=== PATIENT | female | born 1990 | race Caucasian/White ===

== ENCOUNTER 2019-10-07 22:56 | Emergency (ER) | payer BC, OTHER ==
[2019-10-07] MEDS ORDERED: ONDANSETRON 4 MG/2 ML VIAL IVP STA (23:29)
[2019-10-07] MEDS ORDERED: HYDROmorphone 1 MG/ML 1 ML SYRINGE IVP STA (23:29)
[2019-10-07] MEDS ORDERED: SODIUM CHLORIDE 0.9% 1,000 ML IV STA (23:29)
[2019-10-08 00:14] LABS: Basophils % (A) 0 %; Eosinophils # (A) 0.2 k/uL (0-0.7); Eosinophils % (A) 2 %; HCT 38.5 % (34.0-46.0); HGB 13.3 gm/dL (11.4-16.0); Lymphocytes # (A) 3.1 k/uL (1.0-4.8); Lymphocytes % (A) 30 %; MCH 32.6 pg (25.0-35.0); MCHC 34.6 g/dL (31.0-37.0); MCV 94.2 fL (80.0-100.0); Mean Platelet Volume 5.9; Monocytes # (A) 0.6 k/uL (0-1.0); Monocytes % (A) 6 %; Neutrophils # (A) 6.3 k/uL (1.3-7.7); Neutrophils % (A) 60 %; Platelet Count 228 k/uL (150-450); RBC 4.09 m/uL (3.80-5.40); RDW 11.8 % (11.5-15.5); WBC 10.5 k/uL (3.8-10.6)
[2019-10-08 00:18] LABS: Appearance,Urine Clear (Clear); Bacteria,Urine Rare /hpf; Bilirubin,Urine Negative (Negative); Blood,Urine Negative (Negative); Color,Urine Yellow; Glucose,Urine (UA) Negative (Negative); Ketones,Urine Trace (Negative); Leukocyte Esterase,Urine Trace (Negative); Mucus,Urine Rare /hpf; Nitrite,Urine Negative (Negative); Protein,Urine Negative (Negative); RBC,Urine 3 /hpf (0-5); Squamous Epithelial Cell,Urine 4 /hpf (0-4); Urobilinogen,Urine <2.0 mg/dL (<2.0)
[2019-10-08 00:36] LABS: ALT 20 U/L (9-52); AST 25 U/L (14-36); African American GFR (CKD) >90 (>60 ml/min/1.73 sqM); Albumin 4.3 g/dL (3.5-5.0); Alkaline Phosphatase 47 U/L (38-126); Anion Gap 14 mmol/L; Blood Urea Nitrogen 14 mg/dL (7-17); Calcium 9.3 mg/dL (8.4-10.2); Carbon Dioxide 21 mmol/L (22-30); Chloride 102 mmol/L (98-107); Glucose 131 mg/dL (74-99); Potassium 3.4 mmol/L (3.5-5.1); Sodium 137 mmol/L (137-145); Total Bilirubin 1.1 mg/dL (0.2-1.3)
--- NOTE | 2019-10-08 00:42 | US ---
EXAMINATION TYPE: US transvaginal DATE OF EXAM: 10/08/2019 COMPARISON: NONE CLINICAL HISTORY: r/o torsion. Left-sided pelvic pain x 4 hours. G0 TECHNIQUE: Transvaginal (TV). Date of LMP: 09/30/2019 EXAM MEASUREMENTS: Uterus: 8.2 x 4.5 x 3.3 cm Endometrial Stripe: 0.77 cm Right Ovary: 2.6 x 2.0 x 1.6 cm Left Ovary: 2.9 x 1.7 x 1.5 cm 1. Uterus: Anteverted appears to be wnl 2. Endometrium: Hyperechoic area seen HOLA measurin.4 x 0.4 x 0.3 cm. 3. Right Ovary: Anechoic areas seen, largest measures: 0.7 x 0.8 x 0.7 cm. Arterial and venous wavef orms area seen. 4. Left Ovary: Anechoic areas seen. Largest area is septated and measures: 0.9 x 1.2 x 0.8 cm. Arter ial waveform is seen. Limited venous waveform. Cannot definitely show venous waveform. 5. Bilateral Adnexa: appear wnl 6. Posterior cul-de-sac: appears wnl IMPRESSION: There is a small cervical cysts. There are small bilateral ovarian cysts. No solid adnexa l mass. No evidence of ovarian torsion. Normal uterus.
[2019-10-08] MEDS ORDERED: HYDROmorphone 0.5 MG/0.5 ML SYRINGE IVP STA (00:54)
[2019-10-08] MEDS ORDERED: diphenhydrAMINE 50 MG/ML 1 ML VIAL IVP STA (02:13)
[2019-10-08] MEDS ORDERED: METOCLOPRAMIDE 5 MG/ML 2 ML VIAL IVP STA (02:13)
--- NOTE | 2019-10-08 03:10 | ED ---
General Adult HPI - General Source: patient, RN notes reviewed, old records reviewed Mode of arrival: wheelchair Limitations: no limitations <Srikanth Angel - Last Filed: 10/08/19 03:23> <Windy Knowles - Last Filed: 10/08/19 22:54> - General Chief complaint: Abdominal Pain Stated complaint: Lower abd pain Time Seen by Provider: 10/07/19 23:23 - History of Present Illness Initial comments: 29-year-old female patient with no pertinent past medical history presents to the chief complaint of left lower quadrant, left adnexal abdominal pain. Patient worse this began approximately 2 hours prior to presentation. Describes it as a sharp stabbing pain. Reports nausea and vomiting. Denies any other complaints at this time. Denies a chance of being . Systemic: Pt denies fatigue, fever/chills, rash. Pt denies weakness, night sweats, weight loss. Neuro: Pt denies headache, visual disturbances, syncope or pre-syncope. HEENT: Pt denies ocular discharge or irritation, otalgia, rhinorrhea, pharyng itis or notable lymphadenopathy. Cardiopulmonary: Pt denies chest pain, SOB, heart palpitations, dyspnea on exertion. Abdominal/GI: Pt denies n/v/d. : Pt denies dysuria, burning w/ urination, frequency/urgency. Denies new onset urinary or bowel incontinence. MSK: Pt denies myalgia, loss of strength or function in extremities. Neuro: Pt denies new onset weakness, paresthesias. (Srikanth Angel) - Related Data Allergies Allergy/AdvReac Type Severity Reaction Status Date / Time No Known Allergies Allergy Verified 10/07/19 23:13 Review of Systems ROS Other: All systems not noted in ROS Statement are negative. <Srikanth Angel - Last Filed: 10/08/19 03:23> ROS Other: All systems not noted in ROS Statement are negative. <Windy Knowles - Last Filed: 10/08/19 22:54> ROS Statement: Those systems with pertinent positive or pertinent negative responses have been documented in the HPI. Past Medical History Past Medical History: No Reported History History of Any Multi-Drug Resistant Organisms: None Reported Past Surgical History: No Surgical Hx Reported Past Psychological History: No Psychological Hx Reported Smoking Status: Never smoker Past Alcohol Use History: Occasional Past Drug Use History: None Reported <Srikanth Angel - Last Filed: 10/08/19 03:23> General Exam Limitations: no limitations <Srikanth Angel - Last Filed: 10/08/19 03:23> - General Exam Comments Initial Comments: Constitutional: NAD, AOX3, Pt has pleasant affect. HEENT: NC/AT, trachea midline, neck supple, no lymphadenopathy. Posterior pharynx non erythematous, without exudates. External ears appear normal, without discharge. Mucous membranes moist. Eyes PERRLA, EOM intact. There is no scleral icterus. No pallor noted. Cardiopulmonary: RRR, no murmurs, rubs or gallops, no JVD noted. Lungs CTAB in anterior and posterior david. No peripheral edema. Abdominal exam: Abdomen soft and non-distended. Abdomen non-tender to palpation in all 4 quadrants. Bowel sounds active in LLQ. No hepatosplenomegaly. No ecchymosis left adnexal region mildly tender to palpation. Neuro: CN II-XII grossly intact. No nuchal rigidity. No raccon eyes, no lobato sign, no hemotympanum. No cervical spinal tenderness. MSK: No posterior calf tenderness bilaterally, homans sign negative bilaterally. Posterior tibialis and radial pulse +2 bilaterally. Sensation intact in upper and lower extremities. Full active ROM in upper and lower extremities, 5/5 stregnth. (Sriaknth Angel) Course Vital Signs 10/07/19 10/08/19 10/08/19 23:10 00:49 03:38 Temperature 97.9 F 98.2 F 97.9 F Pulse Rate 92 56 L 82 Respiratory 24 18 17 Rate Blood Pressure 108/73 116/66 119/81 O2 Sat by Pulse 100 97 96 Oximetry Medical Decision Making - Lab Data Result diagrams: 10/07/19 23:53 10/07/19 23:53 <Srikanth Angel - Last Filed: 10/08/19 03:23> - Lab Data Result diagrams: 10/07/19 23:53 10/07/19 23:53 <Windy Knowles - Last Filed: 10/08/19 22:54> - Medical Decision Making 29-year-old male patient presents to the chief complaint left adnexal pain. Patient will signs stable, afebrile. Physical exam displayed left adnexal tenderness to palpation. Laboratory investigations are non-impressive. 1.8, hCG negative. Transvaginal shot displayed small cervical cysts, small bilateral ovarian cysts, no solid adnexal mass. No sign of torsion. Normal Uterus. Patient feeling much improved. Pt will be discharged with close siebel administrator follow- up and return precautions. Case discussed and pelvic exam performed by Dr. Knowles. (Srikanth Angel) I personally saw and evaluated the patient, patient with persistent nausea and vomiting after pain medication. She was treated with reglan and benadryl prior to pelvic exam. Upon re-evaluation, patient was sleeping comfortably. I woke the patient, pelvic exam was completed. Patient was noted to have some physiologic discharge, no purulent discharge, no cervical discharge, no CMT or adnexal tenderness on exam. Patient much more comfortable at this time. US results were discussed. Patient and comfortable with plan for discharge home and out patient follow up with Gyne (Windy Knowles) - Lab Data Lab Results 10/07/19 10/07/19 10/07/19 Range/Units 23:53 23:53 23:53 WBC 10.5 (3.8-10.6) k/uL RBC 4.09 (3.80-5.40) m/uL Hgb 13.3 (11.4-16.0) gm/dL Hct 38.5 (34.0-46.0) % MCV 94.2 (80.0-100.0) fL MCH 32.6 (25.0-35.0) pg MCHC 34.6 (31.0-37.0) g/dL RDW 11.8 (11.5-15.5) % Plt Count 228 (150-450) k/uL Neutrophils % 60 % Lymphocytes % 30 % Monocytes % 6 % Eosinophils % 2 % Basophils % 0 % Neutrophils # 6.3 (1.3-7.7) k/uL Lymphocytes # 3.1 (1.0-4.8) k/uL Monocytes # 0.6 (0-1.0) k/uL Eosinophils # 0.2 (0-0.7) k/uL Basophils # 0.0 (0-0.2) k/uL Sodium 137 (137-145) mmol/L Potassium 3.4 L (3.5-5.1) mmol/L Chloride 102 (98-107) mmol/L Carbon Dioxide 21 L (22-30) mmol/L Anion Gap 14 mmol/L BUN 14 (7-17) mg/dL Creatinine 0.79 (0.52-1.04) mg/dL Est GFR (CKD-EPI)AfAm >90 (>60 ml/min/1.73 sqM) Est GFR (CKD-EPI)NonAf >90 (>60 ml/min/1.73 sqM) Glucose 131 H (74-99) mg/dL Plasma Lactic Acid Roger (0.7-2.0) mmol/L Calcium 9.3 (8.4-10.2) mg/dL Total Bilirubin 1.1 (0.2-1.3) mg/dL AST 25 (14-36) U/L ALT 20 (9-52) U/L Alkaline Phosphatase 47 (38-126) U/L Total Protein 7.0 (6.3-8.2) g/dL Albumin 4.3 (3.5-5.0) g/dL Lipase 92 (23-300) U/L Urine Color Urine Appearance (Clear) Urine pH (5.0-8.0) Ur Specific [place] (1.001-1.035) Urine Protein (Negative) Urine Glucose (UA) (Negative) Urine Ketones (Negative) Urine Blood (Negative) Urine Nitrite (Negative) Urine Bilirubin (Negative) Urine Urobilinogen (<2.0) mg/dL Ur Leukocyte Esterase (Negative) Urine RBC (0-5) /hpf Urine WBC (0-5) /hpf Ur Squamous Epith Cells (0-4) /hpf Urine Bacteria (None) /hpf Urine Mucus (None) /hpf Urine HCG, Qual Not Detected (Not Detectd) 10/07/19 10/08/19 Range/Units 23:53 00:36 WBC (3.8-10.6) k/uL RBC (3.80-5.40) m/uL Hgb (11.4-16.0) gm/dL Hct (34.0-46.0) % MCV (80.0-100.0) fL MCH (25.0-35.0) pg MCHC (31.0-37.0) g/dL RDW (11.5-15.5) % Plt Count (150-450) k/uL Neutrophils % % Lymphocytes % % Monocytes % % Eosinophils % % Basophils % % Neutrophils # (1.3-7.7) k/uL Lymphocytes # (1.0-4.8) k/uL Monocytes # (0-1.0) k/uL Eosinophils # (0-0.7) k/uL Basophils # (0-0.2) k/uL Sodium (137-145) mmol/L Potassium (3.5-5.1) mmol/L Chloride (98-107) mmol/L Carbon Dioxide (22-30) mmol/L Anion Gap mmol/L BUN (7-17) mg/dL Creatinine (0.52-1.04) mg/dL Est GFR (CKD-EPI)AfAm (>60 ml/min/1.73 sqM) Est GFR (CKD-EPI)NonAf (>60 ml/min/1.73 sqM) Glucose (74-99) mg/dL Plasma Lactic Acid Roger 1.8 (0.7-2.0) mmol/L Calcium (8.4-10.2) mg/dL Total Bilirubin (0.2-1.3) mg/dL AST (14-36) U/L ALT (9-52) U/L Alkaline Phosphatase (38-126) U/L Total Protein (6.3-8.2) g/dL Albumin (3.5-5.0) g/dL Lipase (23-300) U/L Urine Color Yellow Urine Appearance Clear (Clear) Urine pH 6.0 (5.0-8.0) Ur Specific [place] 1.020 (1.001-1.035) Urine Protein Negative (Negative) Urine Glucose (UA) Negative (Negative) Urine Ketones Trace H (Negative) Urine Blood Negative (Negative) Urine Nitrite Negative (Negative) Urine Bilirubin Negative (Negative) Urine Urobilinogen <2.0 (<2.0) mg/dL Ur Leukocyte Esterase Trace H (Negative) Urine RBC 3 (0-5) /hpf Urine WBC 2 (0-5) /hpf Ur Squamous Epith Cells 4 (0-4) /hpf Urine Bacteria Rare H (None) /hpf Urine Mucus Rare H (None) /hpf Urine HCG, Qual (Not Detectd) Disposition Is patient prescribed a controlled substance at d/c from ED?: No <Srikanth Angel - Last Filed: 10/08/19 03:23> <Windy Knowles - Last Filed: 10/08/19 22:54> Clinical Impression: Pelvic pain Disposition: HOME SELF-CARE Condition: Stable Instructions (If sedation given, give patient instructions): Pelvic Pain in Women (ED) Additional Instructions: Follow up with your previously established data warehouse consultant tomorrow. Also follow up with primary care provider tomorrow. Return to ER if condition worsens in any way. Referrals: None,Stated [Primary Care Provider] - 1-2 days
[2019-10-08] MEDS ORDERED: ACET/COD 300 MG/30 MG STARTER PACK 6 TAB BTL PO STA (03:23)
[2019-10-08 03:39] VITALS: BP 119/81; PULSE 82; RESP 17; TEMP 97.9
[2019-10-09 14:00] LABS: N. gonorrhoeae,PCR Negative (Neg,Equiv); Neisseria Source Vagina
[2019-10-09 14:03] LABS: C. trachomatis,PCR Negative (Neg,Equiv); Chlamydia trachomatis Source Vagina
== END 2019-10-08 03:39 | disposition home or self-care (01) ==
LOC: EC 22:56
DX: N83.202 Unspecified ovarian cyst, left side (principal); N83.201 Unspecified ovarian cyst, right side; N88.8 Other specified noninflammatory disorders of cervix uteri
CPT/HCPCS: 36415 ×2; 80053; 83605; 83690; 85025; 81001; 81025; 87491; 87591; 87070; 93975; 76830; 99285; 96374; 96375 ×3; 96376; 96361; J1200; J2765; J2405; J1170 ×2

== ENCOUNTER 2019-10-11 18:22 | Emergency (ER) | payer BC, OTHER ==
[2019-10-11 18:27] VITALS: RESP 16
[2019-10-11] MEDS ORDERED: SODIUM CHLORIDE 0.9% 1,000 ML IV STA (18:42)
[2019-10-11] MEDS ORDERED: KETOROLAC 30 MG/ML 1 ML VIAL IVP STA (18:42)
--- NOTE | 2019-10-11 18:44 | ED ---
General Adult HPI - General Chief complaint: Abdominal Pain Stated complaint: recheck-low back pain Time Seen by Provider: 10/11/19 18:28 Source: patient, RN notes reviewed Mode of arrival: ambulatory Limitations: no limitations - History of Present Illness Initial comments: 29-year-old female without any significant past medical history presents to the emergency department for left flank pain. Patient states that 5 days ago she was diagnosed with an ovarian cyst. States that she saw PAPER WINDER in the thigh may have ruptured. However today patient has migrated to the back. Patient states that she is not sure what is going on and is not convinced it is a cyst. Patient states she does have urinary urgency but denies dysuria. Denies nausea vomiting diarrhea today. She did have nausea vomiting earlier in the week with this pain.Patient has no other complaints at this time including shortness of breath, chest pain, abdominal pain, nausea or vomiting, headache, or visual changes. - Related Data Previous Rx's Medication Instructions Recorded Ibuprofen [Motrin] 600 mg PO Q6HR PRN #20 tab 10/11/19 Ondansetron [Zofran ODT] 4 mg PO Q8HR PRN #15 tab 10/11/19 Tamsulosin [Flomax] 0.4 mg PO DAILY #14 cap 10/11/19 Allergies Allergy/AdvReac Type Severity Reaction Status Date / Time No Known Allergies Allergy Verified 10/11/19 18:27 Review of Systems ROS Statement: Those systems with pertinent positive or pertinent negative responses have been documented in the HPI. ROS Other: All systems not noted in ROS Statement are negative. Past Medical History Past Medical History: No Reported History History of Any Multi-Drug Resistant Organisms: None Reported Past Surgical History: No Surgical Hx Reported Past Psychological History: No Psychological Hx Reported Smoking Status: Never smoker Past Alcohol Use History: Occasional Past Drug Use History: None Reported General Exam Limitations: no limitations General appearance: alert, in no apparent distress Head exam: Present: atraumatic, normocephalic, normal inspection Eye exam: Present: normal appearance, PERRL, EOMI. Absent: scleral icterus, conjunctival injection, periorbital swelling ENT exam: Present: normal exam, mucous membranes moist Neck exam: Present: normal inspection, full ROM. Absent: tenderness, meningismus, lymphadenopathy Respiratory exam: Present: normal lung sounds bilaterally. Absent: respiratory distress, wheezes, rales, rhonchi, stridor Cardiovascular Exam: Present: regular rate, normal rhythm, normal heart sounds. Absent: systolic murmur, diastolic murmur, rubs, gallop, clicks GI/Abdominal exam: Present: soft, normal bowel sounds. Absent: distended, tenderness, guarding, rebound, rigid Back exam: Present: CVA tenderness (L). Absent: CVA tenderness (R) Course Vital Signs 10/11/19 18:25 Temperature 97.4 F L Pulse Rate 78 Respiratory 16 Rate Blood Pressure 130/70 O2 Sat by Pulse 100 Oximetry Medical Decision Making - Medical Decision Making CBC unremarkable. CMP does show a creatinine of 1.07, patient was given fluids. Urine will be cultured. CT abdomen and pelvis shows a small Kocsis at the left UVJ with minimal left-sided hydronephrosis. This is likely cause of patient's pain. X-ray KUB ordered for urology. Patient was reevaluated, pain is controlled at this time. Patient will be discharged home with medications. She will follow up with urology in 1-2 days. She will return here if she has any worsening symptoms. - Lab Data Result diagrams: 10/11/19 18:55 10/11/19 18:55 Lab Results 10/11/19 10/11/19 10/11/19 Range/Units 18:55 18:55 18:55 WBC 10.0 (3.8-10.6) k/uL RBC 4.55 (3.80-5.40) m/uL Hgb 14.6 (11.4-16.0) gm/dL Hct 42.2 (34.0-46.0) % MCV 92.7 (80.0-100.0) fL MCH 32.0 (25.0-35.0) pg MCHC 34.5 (31.0-37.0) g/dL RDW 11.5 (11.5-15.5) % Plt Count 245 (150-450) k/uL Neutrophils % 73 % Lymphocytes % 18 % Monocytes % 4 % Eosinophils % 1 % Basophils % 1 % Neutrophils # 7.3 (1.3-7.7) k/uL Lymphocytes # 1.8 (1.0-4.8) k/uL Monocytes # 0.4 (0-1.0) k/uL Eosinophils # 0.1 (0-0.7) k/uL Basophils # 0.1 (0-0.2) k/uL Sodium 138 (137-145) mmol/L Potassium 3.8 (3.5-5.1) mmol/L Chloride 102 (98-107) mmol/L Carbon Dioxide 26 (22-30) mmol/L Anion Gap 10 mmol/L BUN 12 (7-17) mg/dL Creatinine 1.07 H (0.52-1.04) mg/dL Est GFR (CKD-EPI)AfAm 82 (>60 ml/min/1.73 sqM) Est GFR (CKD-EPI)NonAf 71 (>60 ml/min/1.73 sqM) Glucose 105 H (74-99) mg/dL Calcium 9.4 (8.4-10.2) mg/dL Total Bilirubin 1.6 H (0.2-1.3) mg/dL AST 19 (14-36) U/L ALT 14 (9-52) U/L Alkaline Phosphatase 56 (38-126) U/L Total Protein 7.3 (6.3-8.2) g/dL Albumin 4.3 (3.5-5.0) g/dL Amylase 36 (30-110) U/L Lipase 38 (23-300) U/L Urine Color Urine Appearance (Clear) Urine pH (5.0-8.0) Ur Specific [place] (1.001-1.035) Urine Protein (Negative) Urine Glucose (UA) (Negative) Urine Ketones (Negative) Urine Blood (Negative) Urine Nitrite (Negative) Urine Bilirubin (Negative) Urine Urobilinogen (<2.0) mg/dL Ur Leukocyte Esterase (Negative) Urine RBC (0-5) /hpf Urine WBC (0-5) /hpf Ur Squamous Epith Cells (0-4) /hpf Urine Bacteria (None) /hpf Urine Mucus (None) /hpf Urine HCG, Qual Not Detected (Not Detectd) 10/11/19 Range/Units 18:55 WBC (3.8-10.6) k/uL RBC (3.80-5.40) m/uL Hgb (11.4-16.0) gm/dL Hct (34.0-46.0) % MCV (80.0-100.0) fL MCH (25.0-35.0) pg MCHC (31.0-37.0) g/dL RDW (11.5-15.5) % Plt Count (150-450) k/uL Neutrophils % % Lymphocytes % % Monocytes % % Eosinophils % % Basophils % % Neutrophils # (1.3-7.7) k/uL Lymphocytes # (1.0-4.8) k/uL Monocytes # (0-1.0) k/uL Eosinophils # (0-0.7) k/uL Basophils # (0-0.2) k/uL Sodium (137-145) mmol/L Potassium (3.5-5.1) mmol/L Chloride (98-107) mmol/L Carbon Dioxide (22-30) mmol/L Anion Gap mmol/L BUN (7-17) mg/dL Creatinine (0.52-1.04) mg/dL Est GFR (CKD-EPI)AfAm (>60 ml/min/1.73 sqM) Est GFR (CKD-EPI)NonAf (>60 ml/min/1.73 sqM) Glucose (74-99) mg/dL Calcium (8.4-10.2) mg/dL Total Bilirubin (0.2-1.3) mg/dL AST (14-36) U/L ALT (9-52) U/L Alkaline Phosphatase (38-126) U/L Total Protein (6.3-8.2) g/dL Albumin (3.5-5.0) g/dL Amylase (30-110) U/L Lipase (23-300) U/L Urine Color Light Yellow Urine Appearance Clear (Clear) Urine pH 5.5 (5.0-8.0) Ur Specific [place] 1.008 (1.001-1.035) Urine Protein Negative (Negative) Urine Glucose (UA) Negative (Negative) Urine Ketones 1+ H (Negative) Urine Blood Negative (Negative) Urine Nitrite Negative (Negative) Urine Bilirubin Negative (Negative) Urine Urobilinogen <2.0 (<2.0) mg/dL Ur Leukocyte Esterase Small H (Negative) Urine RBC 1 (0-5) /hpf Urine WBC 4 (0-5) /hpf Ur Squamous Epith Cells 2 (0-4) /hpf Urine Bacteria Occasional H (None) /hpf Urine Mucus Rare H (None) /hpf Urine HCG, Qual (Not Detectd) Disposition Clinical Impression: Ureterolithiasis Disposition: HOME SELF-CARE Condition: Good Instructions (If sedation given, give patient instructions): Kidney Stones (ED) Additional Instructions: Please take Motrin for pain. If pain is severe take Tylenol 3. Do not drive or operate machinery while taking this. Take Zofran for nausea. Take Flomax daily as directed. Call urology tomorrow and schedule an appointment depending on their availability. If you're having worsening symptoms return to the emerg ency department. Prescriptions: Tamsulosin [Flomax] 0.4 mg PO DAILY #14 cap Ibuprofen [Motrin] 600 mg PO Q6HR PRN #20 tab PRN Reason: Pain Ondansetron [Zofran ODT] 4 mg PO Q8HR PRN #15 tab PRN Reason: Nausea Is patient prescribed a controlled substance at d/c from ED?: No Referrals: Pedro Acosta MD [STAFF PHYSICIAN] - 1-2 days Time of Disposition: 20:14
[2019-10-11 19:10] LABS: Basophils # (A) 0.1 k/uL (0-0.2); Basophils % (A) 1 %; Eosinophils # (A) 0.1 k/uL (0-0.7); Eosinophils % (A) 1 %; HCT 42.2 % (34.0-46.0); HGB 14.6 gm/dL (11.4-16.0); Lymphocytes # (A) 1.8 k/uL (1.0-4.8); Lymphocytes % (A) 18 %; MCHC 34.5 g/dL (31.0-37.0); MCV 92.7 fL (80.0-100.0); Mean Platelet Volume 6.7; Monocytes # (A) 0.4 k/uL (0-1.0); Monocytes % (A) 4 %; Neutrophils # (A) 7.3 k/uL (1.3-7.7); Neutrophils % (A) 73 %; Platelet Count 245 k/uL (150-450); RBC 4.55 m/uL (3.80-5.40); RDW 11.5 % (11.5-15.5)
[2019-10-11 19:18] LABS: Albumin 4.3 g/dL (3.5-5.0); Calcium 9.4 mg/dL (8.4-10.2); Potassium 3.8 mmol/L (3.5-5.1); Total Bilirubin 1.6 mg/dL (0.2-1.3); Total Protein 7.3 g/dL (6.3-8.2)
[2019-10-11 19:19] LABS: Appearance,Urine Clear (Clear); Bacteria,Urine Occasional /hpf; Bilirubin,Urine Negative (Negative); Blood,Urine Negative (Negative); Color,Urine Light Yellow; Glucose,Urine (UA) Negative (Negative); Ketones,Urine 1+ (Negative); Leukocyte Esterase,Urine Small (Negative); Mucus,Urine Rare /hpf; Nitrite,Urine Negative (Negative); PH, Urine 5.5 (5.0-8.0); Protein,Urine Negative (Negative); RBC,Urine 1 /hpf (0-5); Specific Gravity,Urine 1.008 (1.001-1.035); Squamous Epithelial Cell,Urine 2 /hpf (0-4); Urobilinogen,Urine <2.0 mg/dL (<2.0)
--- NOTE | 2019-10-11 19:43 | CT ---
EXAMINATION TYPE: CT abdomen pelvis wo con DATE OF EXAM: 10/11/2019 COMPARISON: None HISTORY: LT side/back pain. Pt was seen in ER Saturday, possible ovarian cyst and torsion. Followed up with OB, now pain is worse CT DLP: 355.4 mGycm Automated exposure control for dose reduction was used. TECHNIQUE: Helical acquisition of images was performed from the lung bases through the pelvis. FINDINGS: Lung bases are clear. There is no pleural effusion. Heart size is normal. Liver spleen pancreas gallbladder appear normal. Bile ducts are not dilated. Gallbladder has normal s ize. There is no adrenal mass. There is some fullness of the left and right renal pelvis. There is 3 mm ca lcification in the pelvis on the left side that is probably a stone in the distal left ureter at the ureterovesical junction. There is no retroperitoneal adenopathy. Bladder distends smoothly. There is no inguinal hernia. There is small amount of fluid in the pelvis. Uterus is anteverted. There is no mesenteric edema. There is no ascites or free air. There is no sign of a bowel obstructio n. There is no sign of thickened appendix. Appendix partly seen and appears normal. Lumbar vertebra have normal spacing and alignment. Posterior elements are intact. There is no santosh venancio fracture. Bony pelvis is intact. IMPRESSION: THERE IS SMALL CALCULUS AT THE LEFT URETERAL VESICLE JUNCTION WITH MINIMAL LEFT-SIDED HYDRONEPHROSIS. MINIMAL RIGHT-SIDED HYDRONEPHROSIS ALSO NOTED BUT NO CALCULUS SEEN.
--- NOTE | 2019-10-11 20:15 | XR ---
EXAMINATION TYPE: XR KUB DATE OF EXAM: 10/11/2019 COMPARISON: NONE HISTORY: Left side abdominal pain TECHNIQUE: 2 views upright FINDINGS: Bowel gas pattern is normal. There is no sign of intestinal obstruction or pneumoperitoneum . Fecal pattern is normal. Lung bases are clear. There are no pathologic calcifications over the kidn eys. There are calcifications in the pelvis on the left side. IMPRESSION: Nonacute abdomen. Left side pelvic calcification consistent with phlebolith and also tiny stone in the distal left ureter.
[2019-10-11 20:41] VITALS: BP 128/74; PULSE 69; TEMP 97
== END 2019-10-11 20:41 | disposition home or self-care (01) ==
LOC: EC 18:22
DX: N13.2 Hydronephrosis with renal and ureteral calculous obstruction (principal)
CPT/HCPCS: 36415; 80053; 82150; 83690; 85025; 81001; 81025; 74018; 74176; 99284; 96374; 96361; J1885

== ENCOUNTER → 2019-10-29 | Outpatient (CLI) | payer BC, OTHER ==
--- NOTE | 2019-10-29 16:04 | US ---
EXAMINATION TYPE: US kidneys/renal and bladder DATE OF EXAM: 10/29/2019 COMPARISON: CT dated 10/11/2019 CLINICAL HISTORY: N20.1 CALCULUS OF URETER. Hx renal stone in left kidney. EXAM MEASUREMENTS: Right Kidney: 10.6 x 5.0 x 4.6 cm Left Kidney: 10.9 x 5.1 x 4.3 cm Right Kidney: Pelviectasis without norman hydronephrosis. Left Kidney: Pelviectasis without norman hydronephrosis Bladder: distended, anechoic Bilateral Jets seen There is no evidence for hydronephrosis at this point in time. No nephrolithiasis is seen. No raffi s are identified. The urinary bladder is anechoic. Bilateral ureteral jets are seen. IMPRESSION: No hydronephrosis or nephrolithiasis seen.
== END | disposition home or self-care (01) ==
LOC: RADUSWWP 15:31
PROVIDERS: ATTEND Urology
DX: N20.1 Calculus of ureter (principal)
CPT/HCPCS: 76770

== ENCOUNTER 2021-03-18 17:58 | Emergency (ER) | payer BC, OTHER ==
[2021-03-18 18:04] VITALS: BP 136/81; PULSE 101; RESP 20; TEMP 97.5
[2021-03-18] MEDS ORDERED: NA PHOS,M-B/NA PHOS,DI-BA 133 ML ENEMA RECTAL STA (19:06)
--- NOTE | 2021-03-18 19:33 | ED ---
General Adult HPI - General Chief complaint: Abdominal Pain Stated complaint: constipation Time Seen by Provider: 03/18/21 19:00 Source: patient, RN notes reviewed Mode of arrival: ambulatory Limitations: no limitations - History of Present Illness Initial comments: Patient is a 30-year-old female status post delivery on 03/06/2021. She notes that she's been constipated for proximal S4 days. She notes that she is on probiotics, iron supplementation. She notes that she eats a healthy diet and gets plenty of fiber. She states that this constipation is unusual for. She notes that she does know that iron can cause constipation. She decided come emergency room to get evaluated. She did note that she took a suppository around 1:30 this afternoon. She denied any chest pain short of breath headache nausea vomiting diarrhea fever fatigue chills. - Related Data Previous Rx's Medication Instructions Recorded Ibuprofen [Motrin] 600 mg PO Q6HR PRN #20 tab 10/11/19 Ondansetron [Zofran ODT] 4 mg PO Q8HR PRN #15 tab 10/11/19 Tamsulosin [Flomax] 0.4 mg PO DAILY #14 cap 10/11/19 Allergies Allergy/AdvReac Type Severity Reaction Status Date / Time No Known Allergies Allergy Verified 03/18/21 18:04 Review of Systems ROS Statement: Those systems with pertinent positive or pertinent negative responses have been documented in the HPI. ROS Other: All systems not noted in ROS Statement are negative. Past Medical History Past Medical History: No Reported History Additional Past Medical History / Comment(s): kidney stones History of Any Multi-Drug Resistant Organisms: None Reported Past Surgical History: No Surgical Hx Reported Past Psychological History: No Psychological Hx Reported Smoking Status: Never smoker Past Alcohol Use History: Occasional Past Drug Use History: None Reported General Exam Limitations: no limitations General appearance: alert, in no apparent distress Head exam: Present: atraumatic, normocephalic, normal inspection Eye exam: Present: normal appearance, PERRL, EOMI. Absent: scleral icterus, conjunctival injection, periorbital swelling Neck exam: Present: normal inspection. Absent: tenderness, meningismus, lymphadenopathy Respiratory exam: Present: normal lung sounds bilaterally. Absent: respiratory distress, wheezes, rales, rhonchi, stridor Cardiovascular Exam: Present: regular rate, normal rhythm, normal heart sounds. Absent: systolic murmur, diastolic murmur, rubs, gallop, clicks GI/Abdominal exam: Present: soft, normal bowel sounds. Absent: distended, tenderness, guarding, rebound, rigid Extremities exam: Present: normal inspection, full ROM, normal capillary refill. Absent: tenderness, pedal edema, joint swelling, calf tenderness Neurological exam: Present: alert, oriented X3, CN II-XII intact Psychiatric exam: Present: normal affect, normal mood Skin exam: Present: warm, dry, intact, normal color. Absent: rash Course Vital Signs 03/18/21 18:00 Temperature 97.5 F L Pulse Rate 101 H Respiratory 20 Rate Blood Pressure 136/81 O2 Sat by Pulse 100 Oximetry Medical Decision Making - Medical Decision Making 30-year-old female complaining of constipation for the past 4 days. KUB, Fleet enema ordered. Patient declined the KUB due to breast-feeding and concerns with radiation while breast-feeding. Patient discussed with Dr. Chilel, patient can discharge home with conservative management. Disposition Clinical Impression: Constipation Disposition: HOME SELF-CARE Condition: Stable Instructions (If sedation given, give patient instructions): Constipation (ED) Additional Instructions: Please return to the Emergency Department if symptoms worsen or any other concerns. Discontinue taking iron supplementation due to constipation side effects. Continue to take stool softeners as prescribed by [employer]. Can do enemas at home every 8-12 hours as needed. Come back in 2-3 days if symptoms persist. Is patient prescribed a controlled substance at d/c from ED?: No Referrals: None,Stated [Primary Care Provider] - 1-2 days Time of Disposition: 20:27
== END 2021-03-18 20:33 | disposition home or self-care (01) ==
LOC: EC 17:58
DX: K59.00 Constipation, unspecified (principal)
CPT/HCPCS: 99283